=== PATIENT | female | born 1995 | race Caucasian/White ===

== ENCOUNTER 2020-03-09 11:24 | Outpatient (REF) | payer OTHER, SELFPAY | END 2020-03-09 11:25 | disposition home or self-care (01) | LOC: HO.LAB 11:24 | PROVIDERS: Visit Provider Internal Medicine | DX: Z20.828 Contact with and (suspected) exposure to other viral communicable diseases (principal) | CPT/HCPCS: U0003 ==

== ENCOUNTER 2021-04-22 13:21 | Outpatient (REF) | payer OTHER, SELFPAY ==
[2021-04-22 14:00] LABS: Binax Internal Control QC Valid; Binax Now Covid-19 Ag Negative (Negative)
[2021-04-22 14:01] LABS: Binax Lot number: 9864
== END 2021-04-22 13:22 | disposition home or self-care (01) ==
LOC: HO.LAB 13:21
PROVIDERS: Visit Provider Internal Medicine
DX: Z20.822 Contact with and (suspected) exposure to COVID-19 (principal)
CPT/HCPCS: C9803

== ENCOUNTER 2021-07-04 11:43 | Outpatient (REF) | payer OTHER, SELFPAY ==
[2021-07-04 12:51] LABS: COVID-19 Test Negative (Negative)
== END 2021-07-04 11:44 | disposition home or self-care (01) ==
LOC: HO.LAB 11:43
PROVIDERS: Visit Provider Internal Medicine
DX: Z20.822 Contact with and (suspected) exposure to COVID-19 (principal)
CPT/HCPCS: 87635; C9803

== ENCOUNTER 2021-10-19 10:38 | Emergency (ER) | payer OTHER, SELFPAY ==
[2021-10-19 10:41] VITALS: BP 136/75; PULSE 70; RESP 18; TEMP 36.6; O2SAT 98; BMI 25.7
[2021-10-19 11:16] LABS: COVID-19 Test Negative (Negative); IDNOW Serial# 9DB6401D
[2021-10-19 11:20] VITALS: BP 108/64; PULSE 62; RESP 16; TEMP 36.4; O2SAT 96
--- NOTE | 2021-10-19 11:32 | ED.URI ---
HPI - URI/Sore Throat General Chief Complaint: Upper Respiratory Symptoms Stated Complaint: wheezing congested Time Seen by Provider: 10/19/21 11:32 Source: patient Mode of arrival: ambulatory Limitations: no limitations History of Present Illness HPI Narrative: Patient is a 26 year old female presenting to the emergency department today with nasal congestion. Patient states that for the last 4 days she has had nasal congestion. Patient denies any dizziness, lightheadedness, abdominal pain, nausea, vomiting, fever, chills, blurry vision, double vision, loss of vision, chest pain, difficulty breathing, shortness of breath, back pain, night sweats, pain with urination, increased urinary frequency, increased urinary urgency, blood in her urine or stool, syncope or a near syncopal episode, recent trauma or falls, bowel incontinence, bladder incontinence, bowel retention, bladder retention, or any other complaints at this time. MD elicited complaint: nasal congestion and sinus pain Onset (ago): day(s) Severity: mild Description of mucous: yellow Able to tolerate fluids by mouth: Yes Exacerbating factors: nothing Relieving factors: nothing Treatments prior to arrival: none Related Data Previous Rx's Medication Instructions Recorded albuterol sulfate 90 mcg/actuation 2 puff inhalation Q6H PRN 10/19/21 aerosol inhaler shortness of breath or wheezing #6.7 grams doxycycline hyclate 100 mg tablet 100 mg PO BID 7 days #14 tabs 10/19/21 Allergies Allergy/AdvReac Type Severity Reaction Status Date / Time No Known Allergies Allergy Verified 10/19/21 10:41 Review of Systems Constitutional: Constitutional: Reports no additional constitutional complaints, Denies chills, Denies fever(s) and Denies night sweats Eyes: Eyes: Reports no additional eye complaints, Denies blurry vision, Denies change in vision, Denies diplopia, Denies eye discharge, Denies loss of vision and Denies eye pain ENT: Denies dizziness, Reports nasal congestion and Reports sinus pressure Cardiovascular: Cardiovascular: Reports no additional cardiovascular complaints, Denies chest pain, Denies lightheadedness, Denies Loss of Consciousness and Denies dyspnea Respiratory: Respiratory: Reports no additional respiratory complaints and Denies dyspnea Gastrointestinal: Gastrointestinal: Reports no additional gastrointestinal complaints, Denies abdominal pain, Denies melena, Denies hematochezia, Denies change in bowel habits and Denies change in stool character Genitourinary: Genitourinary: Denies hematuria, Denies urinary frequency, Denies dysuria, Denies urinary incontinence, Denies urinary hesitancy and Denies urinary urgency Musculoskeletal: Musculoskeletal: Reports no additional musculoskeletal complaints, Denies numbness and Denies tingling Neurologic: Denies dizziness, Denies loss of vision, Denies numbness and Denies tingling Psychiatric: Psychiatric: Reports no additional psychiatric complaints Endocrine: Endocrine: Reports no additional endocrine complaints Hematologic/Lymphatic: Hematologic/Lymphatic: Reports no additional hematologic/lymphatic complaints Allergic/Immunologic: Allergic/Immunologic: Reports no additional allergic/immunologic complaints [facility] Past Medical History Attestation statement: The following information was validated with the patient. Source: old records reviewed Social History Social History Patient Tobacco Use Status: Current everyday Tobacco user Smoked in Last 30 Days: Yes Substance Use Type: Marijuana Substance Use Frequency: Daily Last Used Substance: Hours (ago) Any prior treatment program specific to substance use: No Advance Directives: No Advance Directives Information Provided: No Patient : Yes Physical Exam Vital Signs: Vital Signs: Last Vital Signs Temp 97.6 F 10/19/21 11:20 Pulse 58 10/19/21 12:29 Resp 16 10/19/21 12:29 BP 107/72 10/19/21 12:29 Pulse Ox 98 10/19/21 12:29 O2 Del Method 10/19/21 12:29 BMI result Body Mass Index 25.7 Const: General: cooperative, no acute distress, alert and awake Nutritional Appearance: well nourished Orientation/consciousness: patient oriented x3 Limitations: no limitations HEENT: Head: Yes normal to inspection and Yes atraumatic Ears: hearing grossly normal bilaterally and external ears normal General nose exam: Normal external nose present, no nasal discharge noted and no epistaxis Face and sinus: Yes normal facial exam, No abrasion and No laceration Mouth: Normal oral and palatal mucosa present, no drooling and no muffled voice Eyes: General: appearance normal, both eyes and all related structures Periorbital: periorbital findings normal Eyelids: Yes eyelids normal Conjunctivae: conjunctivae normal Pupils: Equal, round and reactive pupils present EOM: EOMs intact bilaterally Neck: Neck: Yes normal visual inspection, Yes full ROM and Yes no lymphadenopathy Chest: Chest palpation & inspection: normal inspection of the chest Resp: Effort & Inspection: normal respiratory effort and able to speak in complete sentences Auscultation: clear to auscultation bilaterally Cardio: Rate: regular rate Rhythm: regular rhythm GI: Inspection: Yes normal to inspection Neuro: General: patient oriented x3 and moves all extremities Cranial nerves: Yes Equal, round and reactive pupils present Cognition (Neuro): normal cognition Motor exam (neuro): 5/5 motor strength present throughout Sensory Exam: Normal double simultaneous stimulation for sensation Coordination: [id number] test normal Extrem: General: Yes normal to inspection, Yes full ROM and Yes capillary refill normal Psych: Appearance: grossly normal Mental Status: mental status grossly normal Affect: normal affect Attitude: cooperative Thought process: Normal thought process present Thought content: Normal thought content present Insight: Good insight present (Psych) MDM - URI/Sore Throat MDM Narrative Medical decision making narrative: Patient is a 26 year old female presenting to the emergency department today with nasal congestion. Patient's physical exam was unremarkable. Patient's rapid COVID-19 test was negative. I explained my physical exam findings as well as all test results to the patient. I answered all questions asked by the patient. I stressed the importance of the patient taking her medication as prescribed. I stressed the importance of the patient following up with her primary care provider. I stressed the importance of the patient returning to the emergency department immediately if her symptoms were to worsen or if she were to develop any dizziness, shortness of breath, difficulty breathing, chest pain, blurry vision, loss of vision, nausea, vomiting, abdominal pain, fever, chills, back pain, or any other complaints. Patient verbalized agreement and understanding with this treatment plan and discharge. Differential Diagnosis Differential diagnosis: Likely sinusitis Medical Records Attestation: I reviewed the patient's medical records. Lab Data Attestation: I reviewed the patient's lab results. Labs: Lab Results 10/19/21 Range/Units 10:44 COVID-19 (JESSICA) Negative (Negative) COVID-19 Clin Com See Note Discharge Plan Discharge Clinical Impression: Sinusitis Patient Disposition: Home, Self-Care Instructions: Sinusitis (ED) Additional Instructions: Follow up with your primary care provider. Return to the emergency department immediately if your symptoms worsen or if you develop any dizziness, shortness of breath, difficulty breathing, chest pain, blurry vision, loss of vision, nausea, vomiting, abdominal pain, fever, chills, back pain, or any other complaints. Prescriptions: New doxycycline hyclate 100 mg tablet 100 mg PO BID 7 Days Qty: 14 0RF albuterol sulfate 90 mcg/actuation HFA aerosol inhaler 2 puff inhalation Q6H PRN (Reason: shortness of breath or wheezing) Qty: 6.7 0RF Referrals: [facility] – [place] Family [facility] [Provider Group] (Call to establish and follow up with a primary care provider. If you already have a primary care provider, please call and follow up with their office. ) [facility] – [place] Primary Care, [facility] [Provider Group] (Call to establish and follow up with a primary care provider. If you already have a primary care provider, please call and follow up with their office. ) [facility] – [place] Primary Care,[facility] [Provider Group] (Call to establish and follow up with a primary care provider. If you already have a primary care provider, please call and follow up with their office. ) Stand Alone Forms: Work/School Release Interventions: ED Discharge Assessment Last Done: 10/19/21 12:32 Discharge Date/Time: 10/19/21 12:33 Print Language: Kinyarwanda
[2021-10-19 12:29] VITALS: BP 107/72; PULSE 58; RESP 16; O2SAT 98
== END 2021-10-19 12:33 | disposition home or self-care (01) ==
PROVIDERS: Emergency Provider Emergency Medicine
DX: J32.9 Chronic sinusitis, unspecified (principal); Z20.822 Contact with and (suspected) exposure to COVID-19; F17.200 Nicotine dependence, unspecified, uncomplicated; F12.90 Cannabis use, unspecified, uncomplicated
CPT/HCPCS: 87635; 99283; 99284

== ENCOUNTER 2021-12-04 10:36 | Emergency (ER) | payer OTHER, SELFPAY ==
[2021-12-04 10:38] VITALS: BP 131/67; PULSE 80; RESP 19; TEMP 36.6; O2SAT 98; BMI 26.4
--- NOTE | 2021-12-04 11:33 | ED.DENTAL ---
HPI - Dental/Oral General Chief complaint: Dental/Oral Stated complaint: Dental pain Time Seen by Provider: 12/04/21 11:14 Source: patient Mode of arrival: ambulatory Limitations: no limitations History of Present Illness HPI Narrative: Patient presents emergency department for evaluation of right lower dental pain with onset 1 week ago. She reports a history of a similar pain approximately 2 months ago she was evaluated by her dental provider and had 2 molars removed. She has tried ibuprofen and Orajel without significant relief. She does report a foul taste in her mouth. Denies fevers, chills, neck pain, neck stiffness, pain with swallowing, difficulty swallowing, chest pain, palpitations, shortness of breath, difficulty breathing, nausea, vomiting, abdominal pain. Related Data Previous Rx's Medication Instructions Recorded albuterol sulfate 90 mcg/actuation 2 puff inhalation Q6H PRN 10/19/21 aerosol inhaler shortness of breath or wheezing #6.7 grams doxycycline hyclate 100 mg tablet 100 mg PO BID 7 days #14 tabs 10/19/21 amoxicillin 875 mg-potassium 1 tab PO Q12H 7 days #14 tabs 12/04/21 clavulanate 125 mg tablet naproxen 500 mg tablet 500 mg PO BID PRN pain #14 tabs 12/04/21 Allergies Allergy/AdvReac Type Severity Reaction Status Date / Time No Known Allergies Allergy Verified 10/19/21 10:41 Review of Systems Review of Systems: Constitutional : No Fever, No Chills, No changes in PO intake, No difficulty speaking,? positive recent dental procedure, no heat or cold intolerance while eating, no recent face trauma, ENT/Mouth : No swallowing difficulty, no change in voice, No jaw pain, No facial swelling, no drooling, no trismus, no bleeding, no throat swelling, no lacerations, no tongue swelling, gum swelling, Eyes: No Eye Pain, No periorbital Swelling Cardiovascular : No Chest Pain, No SOB Respiratory : No Cough, No Sputum, No Wheezing, No Smoke Exposure, No Dyspnea Gastrointestinal : No Nausea, No Vomiting, No Diarrhea Genitourinary : No Dysuria Musculoskeletal : No Myalgias Skin : No rash, no facial swelling or redness, Neuro : No Weakness, No Numbness, No Headache Yes all other systems are reviewed and are negative [facility] Past Medical History Attestation statement: The following information was validated with the patient. Source: old records reviewed Social History Social History Patient Tobacco Use Status: Current everyday Tobacco user Substance Use Type: Marijuana Advance Directives: No Advance Directives Information Provided: No Physical Exam Vital Signs: Vital Signs: Last Vital Signs Temp 98 F 12/04/21 10:38 Pulse 80 12/04/21 10:38 Resp 19 12/04/21 10:38 BP 131/67 12/04/21 10:38 Pulse Ox 98 12/04/21 10:38 O2 Del Method 12/04/21 10:38 BMI result Body Mass Index 26.4 Appearance: Alert. Oriented X3. No acute distress. Head: Normal external exam. Normocephalic. Atraumatic. Eyes: PERRLA. EOMI. Conjunctiva and sclera normal. Eyelids normal. ENT: EAC normal. TM's Normal. Pharynx normal. Uvula midline. Moist mucous membranes.? ?No trismus noted.? No drooling noted.? No muffled voice noted. Dentition:? Patient with fracture to tooth number 32, with erythematous gum surrounding, no obvious abscess or fluid pocket. Gingival within normal limits.? No fluctuance.? Not consistent with peritonsillar abscess. Not consistent with dental abscess.? No salivary duct obstruction noted. Neck: Normal inspection. Neck supple. FROM. No adenopathy. No meningeal signs. No neck mass noted.? Trachea midline. CVS: Normal heart rate and rhythm. Heart sound normal. No murmurs noted. Pulses normal throughout. Respiratory: No respiratory distress. Lung sounds are clear bilaterally. ?No accessory muscle usage noted or decreased air movement noted. Back:? Full range of motion noted. Skin: Skin warm and dry.? Normal skin color.? Normal skin turgor. No rashes/lesions/lacerations noted. Extremities: Extremities exhibit normal range of motion.? Extremities nontender. Neuro: Oriented X 3.? No motor deficit.? No sensory deficit.? Reflexes normal. Course Course Course Narrative: Patient Is a 26-year-old female with no significant past medical history presents emergency department for evaluation of dental pain. Physical exam concerning for early infection surrounding the cracked tooth number 32 erythematous, but no obvious fluid pocket for abscess. Not consistent with Peripharyngeal space infection or oralfacial space infection. Not consistent with Moiz's angina. Discussed plan of care for discharge home, course of Augmentin, naproxen for pain, outpatient follow-up with dental provider. Discussed worsening signs and symptoms to return back to the emergency department for. All questions were answered, patient was discharged home in stable condition MDM - Dental/Oral Medical Records Attestation: I reviewed the patient's medical records. Discharge Plan Discharge Clinical Impression: Dental caries, Toothache Patient Disposition: Home, Self-Care Instructions: Toothache (ED) Additional Instructions: As we discussed, there is no obvious abscess or pocket of fluid that needs to be drained on examination. You do have a crack to your right lower molar, you need to contact your dental provider to arrange for further follow-up. Your gums in this area are very red, therefore your been given a prescription for an antibiotic to treat infection. Please complete this entire course. You have been given a prescription for naproxen to use for pain, do not use additional [id number] medications such as ibuprofen/Advil/Motrin, or Aleve while taking this medication. Return to the emergency department any new or worsening symptoms or concerns. Prescriptions: New amoxicillin-pot clavulanate 875-125 mg tablet 1 tab PO Q12H 7 Days Qty: 14 0RF naproxen 500 mg tablet 500 mg PO BID PRN (Reason: pain) Qty: 14 0RF No Action doxycycline hyclate 100 mg tablet 100 mg PO BID 7 Days Qty: 14 0RF albuterol sulfate 90 mcg/actuation HFA aerosol inhaler 2 puff inhalation Q6H PRN (Reason: shortness of breath or wheezing) Qty: 6.7 0RF Interventions: ED Discharge Assessment Last Done: 12/04/21 11:47 Discharge Date/Time: 12/04/21 11:47
== END 2021-12-04 11:47 | disposition home or self-care (01) ==
PROVIDERS: Emergency Provider Emergency Medicine
DX: K02.9 Dental caries, unspecified (principal)
CPT/HCPCS: 99282

== ENCOUNTER 2022-02-01 14:43 | Outpatient (REF) | payer OTHER, SELFPAY ==
[2022-02-01 15:36] LABS: COVID-19 Test Negative (Negative); IDNOW Serial# 16C4AD1C
== END 2022-02-01 14:44 | disposition home or self-care (01) ==
LOC: HO.LAB 14:43
PROVIDERS: Visit Provider Internal Medicine
DX: Z20.822 Contact with and (suspected) exposure to COVID-19 (principal)
CPT/HCPCS: 87635; C9803

== ENCOUNTER 2022-11-14 12:52 | Outpatient (AMB) | payer MEDICARE, MEDICAID, SELFPAY ==
[2022-11-14 13:04] VITALS: BP 110/72; PULSE 83; O2SAT 98; BMI 28.1
--- NOTE | 2022-11-14 13:04 | A.OFFPC_ITS ---
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 Site Project Manager Required: No Accompanied by: Self / Same As Patient Is last menstrual period known: Yes (Pt on control) Last menstrual period: 11/02/22 Allergies No Known Allergies Allergy (Verified 11/14/22 13:18) Medication List - Last Reconciled 11/14/22 by Val Sandy MD albuterol sulfate 90 mcg/actuation 2 puffs inhalation Q6H PRN Tobacco use date assessed: 11/14/22 Dental Screening Dental Screen Date: 11/14/22 Did you have a dental visit in the last 12 months?: No Did you have a dental problem in the last 6 months where you did not have access to dental care?: No Was dental information given to patient?: Patient has dentist HPI HPI Comments History of Present Illness Details This is a 27-year-old female that comes to establish care. She has wheezing and shortness of breath relieved by bronchodilator that she by arrows from her son most likely due to mild persistent asthma. She also complains of lumbar pain that does not radiate to the legs and is not associated with leg numbness. No fever, bowel or bladder incontinence. She complains of moderate recurrent major depression and anxiety as well as insomnia and does not have a counselor. No suicidal thoughts. This has been present for over a month. Will start her on sertraline and BuSpar which she has use in the past. She also has migraines that happens 3 to 4 times a week and I will place her on Topamax at bedtime for migraine prophylaxis. She also complains of some pelvic pain in the right side of the pelvis after having sexual intercourse. Has nexplanon and says is time to change it therefore I will refer her to OBGYN. Unsure if she had a Pap smear 2 years ago. She used to in [place] heroin and has been 4 years sober. Will test for hepatitis-C. Denies any jaundice. 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 1. Little interest or pleasure in doing things: several days 2. Feeling down, depressed, or hopeless: several days 3. Trouble falling or staying asleep, or sleeping too much: nearly every day 4. Feeling tired or having little energy: several days 5. Poor appetite or overeating: nearly every day 6. Feeling bad about yourself - or that you are a failure or have let yourself or your family down: nearly every day 7. Trouble concentrating on things, such as reading the newspaper or watching television: nearly every day 8. Moving or speaking so slowly that other people could have noticed. Or the opposite - being so fidgety or restless that you have been moving around a lot more than usual: not at all 9. Thoughts that you would be better off or of hurting yourself in some way: not at all Total score: 15 Depression Screening Interpretation: Positive (no suicidal thoughts) Depression Screening Follow-up: Existing condition, New Medication prescribed and Community Mental Health Worker F/U 38225 - PHQ-9 Billing: Yes Source: Developed by Drs. Ciro Moreira, Carla Hennessy, Jaquan Jensen and colleagues, with an educational iraida from [employer]. Thrive Questionnaire Date Thrive assessed: 11/14/22 I am a: Patient What is your living situation today?: I have a steady place to live Within the past 12 months, did the food you bought not last and you didn't have the money to get more?: Never true Within the past 12 months, did you worry whether your food would run out before you got money to buy more?: Never true Do you have trouble paying for medicines?: No Do you have trouble getting transportation to medical appointments?: No Do you have trouble paying your heating and electricity bill?: No Do you have trouble taking care of your child, family member or friend?: No Do you have trouble with day-to-day activities such as bathing, preparing meals, shopping, managing finances, etc.?: No Are you currently unemployed and looking for a job?: No Are you interested in more education?: No Please select the resources that you would like help with: Food and Education Currently or been in a relationship where the following occur: no concerns reported AUDIT C Alcohol Use Questionnaire (AUDIT-C) 1. How often do you have a drink containing alcohol?: Monthly or less 2. How many drinks containing alcohol do you have on a typical day when you are drinking?: 1 or 2 3. How often do you have six or more drinks on one occasion?: Never Total Score: 1 Score Reviewed/Action Taken: No JUANITA-7 AMB Questionnaire JUANITA-7 Date JUANITA - 7 assessed: 11/14/22 Feeling nervous, anxious, or on edge: 2 = More than half the days Not being able to stop or control worryin = Several days Worrying too much about different things: 1 = Several days Trouble relaxin = Several days Being so restless that it is hard to sit still: 3 = Nearly every day Becoming easily annoyed or irritable: 3 = Nearly every day Feeling afraid as if something awful might happen: 2 = More than half the days Total JUANITA-7 score (0-4 normal; 5-9 mild; 10-14 moderate; 15-21 severe): 13 Source: Developed by Drs. Ciro Moreira, Carla Hennessy, Jaquan Jensen and colleagues, with an educational iraida from [employer]. JUANITA-7 Assessment Billing JUANITA-7 Assessment Tool: JUANITA-7 Assessment 87386 Review of Systems Const All systems reviewed & are unremarkable except as noted in HPI and below Reports headache(s) Eyes Reports no additional complaints, Denies change in vision and Denies other visual disturbances ENT Reports headache(s) Card Denies chest pain at rest, Denies chest pain with activity, Denies edema, Denies irregular heart rhythm, Denies claudication, Reports dyspnea, Reports dyspnea on exertion, Denies orthopnea, Denies paroxysmal nocturnal dyspnea and Denies slow heart rate Resp Denies cough, Reports dyspnea, Reports dyspnea on exertion and Reports wheezing GI Denies abdominal pain, Denies change in bowel habits, Denies excessive flatus, Denies nausea and Denies vomiting Denies urinary incontinence, Denies urinary hesitancy and Denies urinary urgency Musc Denies abnormal gait, Reports back pain, Denies atrophy, Denies deformity and Denies limited range of motion Skin/Breast Denies bleeding lesions, Denies changing lesions and Denies rash Neuro Denies abnormal gait, Reports headache(s) and Denies lack of coordination Psych Reports abnormal sleep pattern, Reports anxiety and Reports depression Aller/Immun Reports wheezing Physical exam (Primary Care) Vital Signs: Last Vital Signs Pulse 83 11/14/22 13:04 BP 110/72 11/14/22 13:04 Pulse Ox 98 11/14/22 13:04 Oxygen Delivery Method Room Air 11/14/22 13:04 BMI result Body Mass Index 28.1 Tobacco/Smoking Status: Tobacco use Status Tobacco use date assessed 11/14/22 11/14/22 13:33 Patient Tobacco Use Status Current everyday Tobacco 11/14/22 13:32 Tobacco use type Cigarette 11/14/22 13:33 e-Cigarette/Vaping Use Former Use 11/14/22 13:33 PHQ-9: PHQ-9 Score PHQ-9: Total score 15 11/14/22 13:33 Depression Screening Interpretation: Positive (no suicidal thoughts) Depression Screening Follow-up: Existing condition, New Medication prescribed and Community Mental Health Worker F/U Thrive Assessment: Date of Thrive Assessment Date Thrive assessed 11/14/22 11/14/22 13:33 Currently or been in a relationship where the following occur: no concerns reported Eyes General: appearance normal, both eyes and all related structures Eyelids: Yes eyelids normal Conjunctivae: conjunctivae normal Neck Neck: Yes normal visual inspection and Yes supple Resp Effort & Inspection: normal respiratory effort Auscultation: clear to auscultation bilaterally Cardio Jugular venous distension: no JVD Rate: regular rate Rhythm: regular rhythm Heart sounds: S1 normal heart sound present and S2 normal heart sound present Extrem General: Yes full ROM Assessment and Plan Assessment & Plan (1) Moderate recurrent major depression: Code(s): F33.1 - Major depressive disorder, recurrent, moderate Plan: Start sertraline. Referred to counseling. (2) Mild persistent asthma: Code(s): J45.30 - Mild persistent asthma, uncomplicated Plan: Spearmint tree ordered. Start rescue inhaler as needed. (3) JUANITA (generalized anxiety disorder): Code(s): F41.1 - Generalized anxiety disorder Plan: Start BuSpar. (4) Lumbar pain: Code(s): M54.50 - Low back pain, unspecified Plan: X-ray ordered (5) History of heroin abuse: Code(s): F11.11 - Opioid abuse, in remission Plan: Test for hepatitis-C. (6) Migraines: Code(s): G43.909 - Migraine, unspecified, not intractable, without status migrainosus Plan: Start Topamax at bedtime for migraine prophylaxis. Side effects such as sleepiness and had numbness and tingling as well as some memory loss or confusion were advised. 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 Referral R10.2 - Pelvic and perineal pain, Z30.9 - Encounter for contraceptive management, unspecified Counseling Referral F33.1 - Major depressive disorder, recurrent, moderate Medications: New sertraline 25 mg PO DAILY 90 days 90 tabs 1RF F33.1 - Major depressive disorder, recurrent, moderate topiramate 25 mg PO BEDTIME 90 days 90 tabs 1RF G43.909 - Migraine, unspecified, not intractable, without status migrainosus buspirone 7.5 mg PO BID 90 days 180 tabs 2RF F41.1 - Generalized anxiety disorder Ventolin HFA 90 mcg/actuation (albuterol sulfate) 2 puffs inhalation Q6H 30 days PRN 8 grams 2RF shortness of breath or wheezing NS J45.30 - Mild persistent asthma, uncomplicated Discontinued albuterol sulfate 90 mcg/actuation Discontinued Reason: Insurance Denied 2 puffs inhalation Q6H PRN 6.7 grams 0RF shortness of breath or wheezing Coding Level of Care Code New Pt Level 4 (33300) Diagnoses Moderate recurrent major depression F33.1 Mild persistent asthma J45.30 JUANITA (generalized anxiety disorder) F41.1 Lumbar pain M54.50 History of heroin abuse F11.11 Migraines G43.909 Additional Codes JUANITA-7 Assessment Billing - JUANITA-7 Assessment Tool: JUANITA-7 Assessment 20343 ([id number]) Time Spent (min) 23
== END 2022-11-14 13:50 | disposition home or self-care (01) ==
PROVIDERS: Visit Provider Internal Medicine
DX: F33.1 Major depressive disorder, recurrent, moderate (principal); J45.30 Mild persistent asthma, uncomplicated; F11.11 Opioid abuse, in remission; G43.909 Migraine, unspecified, not intractable, without status migrainosus; F41.1 Generalized anxiety disorder; M54.50 Low back pain, unspecified
CPT/HCPCS: 99204

== ENCOUNTER 2023-02-07 13:59 | Outpatient (AMB) | payer OTHER, SELFPAY ==
[2023-02-07 14:12] VITALS: BP 114/72; BMI 28.2
--- NOTE | 2023-02-07 14:12 | A.OFFVIS_ITS ---
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 Intake Note: Want a new nexplanon Cytogenetics Laboratory Manager Required: No Information Interpreted: non-clinical & clinical Animal Killer: Animal Killer Present (Diandra Lopez NATALIA) Accompanied by: Self / Same As Patient Allergies No Known Allergies Allergy (Verified 02/07/23 14:14) Medication List - Last Reconciled 02/07/23 by Zoe Overton CNM buspirone 7.5 mg PO BID 90 days etonogestrel (Nexplanon) subdermal sertraline 25 mg PO DAILY 90 days topiramate 25 mg PO BEDTIME 90 days Ventolin HFA 90 mcg/actuation (albuterol sulfate) 2 puffs inhalation Q6H PRN 30 days NS Is last menstrual period known: Yes Last menstrual period: 02/05/23 HPI 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 Had she has not been here for many years. 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 Her kids are good her youngest is 10 years old she has had a Nexplanon since she delivered her youngest she had 1 for many years that was put in imediatelly after giving at [facility] and then she was [facility] for of replacement and that was put in in September 2018 she has been getting irregular periods but her periods have been sort of regular lately and she wants to replace the Nexplanon. She does have questions about how the Nexplanon and medications interact because she has been getting says very severe migraine headaches and was tried on a new medication quite recently but has not seen a beneficial effect yet she is going to go to Neurology right after this visit and make an appointment to be seen. Most of this visit was discuss sing the interactions between the Topamax that she was placed on and hormonal methods of control and potential effects also discussed the weight gain effects of the Nexplanon and the irregular menses affect. Discussed alternatives including ParaGard and removed Mirena IUDs but she is not interested even after full discussion. Full exam and Pap and cultures were done today and she signed the form for the Nexplanon and then she will return with menses when it arrives in so that we can replace it she is very certain that she wants to replace the Nex planon. I told her to discuss it also with the neurologist to [facility] Medical History (Updated 02/07/23 @ 15:05 by Zoe Overton CNM) History of heroin abuse Family History Mother Type II diabetes mellitus Elevated TSH FH: HTN (hypertension) Father Short-term memory loss Social History (Updated 02/07/23 @ 14:16 by Diandra Lopez CMA) Household Members: Significant Other and Children Housing: House Alcohol intake: current Alcohol intake frequency: holidays/special occasions only Alcohol type: wine Patient Tobacco Use Status: Current everyday Tobacco user Tobacco use type: Cigarette Cigarettes Per Day: 9 e-Cigarette/Vaping Use: Former Use Substance Use Type: Marijuana service: No Current occupational status: employed 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 Sexually active: Yes Sexual orientation: Straight/Heterosexual Gender identity: Female Cognitive needs: No Hearing needs: No Vision needs: No Female Reproductive History Menstrual Date of last menstrual period: 02/05/23 control method: implanted Total pregnancies: 2 Full term: 2 Number of Living Children: 2 Physical Exam Vital Signs: Last Vital Signs BP 114/72 02/07/23 14:12 BMI result Body Mass Index 28.2 Const General: healthy appearing, comfortable, no acute distress, well developed and alert Nutritional Appearance: average body habitus Orientation/consciousness: patient oriented x3 Limitations: no limitations HEENT Head: Yes normocephalic Neck Neck: Yes normal visual inspection Chest Chest palpation & inspection: normal inspection of the chest Breast/axilla inspection: normal inspection of the breasts and normal inspection of the axillae Breast/axilla palpation: normal palpation of the breasts and normal palpation of the axillae Resp Effort & Inspection: normal respiratory effort GI Inspection: Yes normal to inspection, No Abdominal wall edema and No distended Palpation (GI): Soft to palpation and nontender Other: Normal speculum exam vagina pink and moist with day 3 of menses dark clotting blood. Cervix is parous long thick closed mobile nontender uterus is small anteverted nontender mobile good tone with Kegel adnexa nontender. General: Yes bladder normal to palpation External Female Exam: normal external appearance and normal appearance of the urethra Speculum Exam - Vagina: normal appearance of the vagina, normal palpation and normal vaginal discharge Speculum Exam - Cervix: normal appearance of the cervix, normal palpation and nontender Bimanual exam- vagina & uterus: normal bimanual exam, normal palpation, uterine size normal, bladder normal to palpation, consistency normal, normal palpation, uterine mobility normal, uterine shape normal, No Cervical tenderness present, non-tender and no cervical motion tenderness Bimanual Exam- Adnexa, other: normal adnexae, no masses, normal and No adnexal tenderness Neuro General: patient oriented x3 Assessment & Plan Assessment & Plan (1) Contraception management: Code(s): Z30.9 - Encounter for contraceptive management, unspecified (2) Well woman exam with routine gynecological exam: Code(s): Z01.419 - Encounter for gynecological examination (general) (routine) without abnormal findings (3) Cervical cancer screening: Code(s): Z12.4 - Encounter for screening for malignant neoplasm of cervix (4) Migraines: Comment: Discussed potential interactions with control methods.... Code(s): G43.909 - Migraine, unspecified, not intractable, without status migrainosus (5) History of heroin abuse: Comment: Weaned from methadone to Suboxone to Vivitrol and is now off everything & completely sober. 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 Had she has not been here for many years. 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 Her kids are good her youngest is 10 years old she has had a Nexplanon since she delivered her youngest she had 1 for many years that was put in imediatelly after giving at [facility] and then she was sent to [facility] for of replacement and that was put in in September 2018 she has been getting irregular periods but her periods have been sort of regular lately and she wants to replace the Nexplanon. She does have questions about how the Nexplanon and medications interact because she has been getting says very severe migraine headaches and was tried on a new medication quite recently but has not seen a beneficial effect yet she is going to go to Neurology right after this visit and make an appointment to be seen. Most of this visit was discuss sing the interactions between the Topamax that she was placed on and hormonal methods of control and potential effects also discussed the weight gain effects of the Nexplanon and the irregular menses affect. Discussed alternatives including ParaGard and removed Mirena IUDs but she is not interested even after full discussion. Full exam and Pap and cultures were done today and she signed the form for the Nexplanon and then she will return with menses when it arrives in so that we can replace it she is very certain that she wants to replace the Nexplanon. I told her to discuss it also with the neurologist too. Congratulated on her very hard work and sobriety. Orders: Orders Pap Smear Today Z01.419 - Encounter for gynecological examination (general) (routine) without abnormal findings CT NG by PCR Today Z01.419 - Encounter for gynecological examination (general) (routine) without abnormal findings Bacterial Vaginosis Panel Today Z01.419 - Encounter for gynecological examination (general) (routine) without abnormal findings Coding Level of Care Code New Pt Prev Care 18-39yr([id number] Diagnoses Contraception management Z30.9 Well woman exam with routine gynecological exam Z01.419 Cervical cancer screening Z12.4 Migraines G43.909 History of heroin abuse F11.11 Screen for sexually transmitted diseases Z11.3
== END 2023-02-07 15:43 | disposition home or self-care (01) ==
PROVIDERS: PCP Internal Medicine; Visit Provider Advanced Practice Midwife
DX: Z01.419 Encounter for gynecological examination (general) (routine) without abnormal findings (principal); G43.909 Migraine, unspecified, not intractable, without status migrainosus; F11.11 Opioid abuse, in remission
CPT/HCPCS: 99385

== ENCOUNTER 2023-02-07 13:59 | Outpatient (REF) | payer MEDICARE, SELFPAY ==
[2023-02-07 16:52] LABS: CT PCR NOT DETECTED (Not Detect.); NG PCR NOT DETECTED (Not Detect.)
[2023-02-08 13:55] LABS: BV Int Neg Control Negative (Negative); BV Int Pos Control Positive (Positive)
== END 2023-02-07 14:00 | disposition home or self-care (01) ==
LOC: HO.LNP 13:59
PROVIDERS: PCP Internal Medicine; Visit Provider Advanced Practice Midwife
DX: Z01.419 Encounter for gynecological examination (general) (routine) without abnormal findings (principal); F11.11 Opioid abuse, in remission; G43.909 Migraine, unspecified, not intractable, without status migrainosus; Z20.2 Contact with and (suspected) exposure to infections with a predominantly sexual mode of transmission
CPT/HCPCS: 0353U; 87480; 87510; 87660; 88142

== ENCOUNTER 2023-07-05 10:17 | Outpatient (AMB) | payer MEDICARE, MEDICAID, SELFPAY ==
[2023-07-05 10:24] VITALS: BP 112/74; BMI 27.6
--- NOTE | 2023-07-05 10:24 | MHC.OFFVIS ---
Intake Vital Signs 07/05/23 10:24 Height 5 ft 7 in Weight 176 lb BMI 27.6 BP 112/74 Intake Visit Reasons: Nexplanon removal consult Intake Note: Patient would like Nexplanon removed Internetworking Technician Required: No Information Interpreted: non-clinical & clinical Steward/Stewardess Deck: Steward/Stewardess Deck Present (Aidyn) Allergies No Known Allergies Allergy (Verified 07/05/23 10:40) Is last menstrual period known: Yes Last menstrual period: 06/18/23 Post menopausal: No HPI Nexplanon removal consult HPI Details Patient is here for her Nexplanon removal it was inserted pre pandemic around 2018. Her periods have not really ever return to normal and they are still irregular her last 1 was June 17 but previous to that it had been a couple of months the last time she had sex was a couple of months ago she has not sexually active with anybody right now so she thinks it has a good time to take it out she was going to have it replaced but there were problems with her insurance and for what ever reason her Nexplanon could not be approved. She knows there is not 1 available but she wants this 1 out anyway and she would use condoms and I reinforced this and also discuss plan B should that be necessary if she were extra concerned. [facility] Medical History (Updated 07/05/23 @ 11:28 by Zoe Overton CNM) History of heroin abuse Family History Mother Type II diabetes mellitus Elevated TSH FH: HTN (hypertension) Father Short-term memory loss Social History (Updated 02/07/23 @ 14:16 by Diandra Lopez CMA) Household Members: Significant Other and Children Housing: House Alcohol intake: current Alcohol intake frequency: holidays/special occasions only Alcohol type: wine Patient Tobacco Use Status: Current everyday Tobacco user Tobacco use type: Cigarette Cigarettes Per Day: 9 e-Cigarette/Vaping Use: Former Use Substance Use Type: Marijuana service: No Current occupational status: employed 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 The insertion site was located: 8-10cm from the medial epicondyle notch of the humerus, posterior to the sulcus, between the triceps and biceps muscle. The area of the previous implant was identified and the distal tip located. This area was cleansed with an alcohol prep and 3 ml of 1% Lidocaine on a 25 gauge needle and syringe was utilized for adequate anesthesia to the insertion site. After ascertaining adequate anesthesia, the area was prepped with Betadine solution. The skin over the distal tip was incised with a #11 blade scalpel and the capsule was located and entered freeing the implant from the canal. The implant was removed with a gentle tug using a mosquito clamp and removed intact. Direct pressure was applied to the insertion site for hemostasis, minimal bleeding was observed. Steri strips, Tegaderm covering, gauze pads, and Shivam wrap dressing were secured with paper tape. The implant was palpable underneath the skin by myself and the patient. The patient tolerated the procedure well and left the office in good condition. 24326 - Removal Assessment & Plan Assessment & Plan (1) Contraception management: Code(s): Z30.9 - Encounter for contraceptive management, unspecified (2) Encounter for Nexplanon removal: Code(s): Z30.46 - Encounter for surveillance of implantable subdermal contraceptive Plan Reviewed self-care of the previous Nexplanon site recommend keeping the Tegaderm on for at least 3 days and keeping the pressure dressing on until late this afternoon she can shower with the Tegaderm on if there is any sign of infection to seek urgent care but there should not be because it was done with sterile conditions additionally she is to use condoms for safer sex and control consider Plan B if it were necessary and she is going to reconsider future options right now she has not sexually active so it has not a concern the last time was a couple of months ago her periods still have not returned to completely normal since the Nexplanon which would have been probably around 2021. Orders: Orders AMB Nexplanon/Implanon Insertion - Patient Supply Today Z30.46 - Encounter for surveillance of implantable subdermal contraceptive Coding Level of Care Code Est Pt Level 3 (88324) Diagnoses Contraception management Z30.9 Encounter for Nexplanon removal Z30.46 CPT Codes Details - Contraception: 58277 - Removal ([id number])
== END 2023-07-05 11:51 | disposition home or self-care (01) ==
PROVIDERS: PCP Internal Medicine; Visit Provider Advanced Practice Midwife
DX: Z30.46 Encounter for surveillance of implantable subdermal contraceptive (principal)
CPT/HCPCS: 11982

== ENCOUNTER → 2023-07-05 10:17 | Outpatient (BNVA) | payer MEDICARE, MEDICAID, SELFPAY | PROVIDERS: PCP Internal Medicine; Visit Provider Advanced Practice Midwife | DX: Z30.46 Encounter for surveillance of implantable subdermal contraceptive (principal) | CPT/HCPCS: 11982 ==